=== PATIENT | male | born 1955 | race Two or more races ===

== ENCOUNTER → 2024-08-07 09:29 | Outpatient (REF) | payer OTHER, SELFPAY | LOC: WDC 09:29 | PROVIDERS: ATTENDING PHYSICIAN Surgery; FAMILY PHYSICIAN Nurse Practitioner Family | DX: R59.1 Generalized enlarged lymph nodes (principal); C43.59 Malignant melanoma of other part of trunk | CPT/HCPCS: 76642; 77062; 77066 ==